=== PATIENT | male | born 1980 | race Caucasian/White ===

== ENCOUNTER 2018-07-13 14:54 | Emergency (ER) | payer OTHER ==
--- NOTE | 2018-07-13 16:22 | ER Document Report ---
ED Medical Screen (RME) - General Chief Complaint: Chest Pain Stated Complaint: ABDOMINAL PAIN/ESOPHAGEAL PAIN Time Seen by Provider: 07/13/18 16:12 Notes: 37-year-old male patient comes emergency room complaining of a burning right- sided chest pain for the past 3 weeks that he noticed was worse this morning. He took Leisa-[place] without any relief. He also noted today his left arm feels heavy like he slept on it wrong. States nothing seemed to make the pain better or worse including activity, exercise, or eating or drinking. I have greeted and performed a rapid initial assessment of this patient. A comprehensive ED assessment and evaluation of the patient, analysis of test results and completion of the medical decision making process will be conducted by additional ED providers. TRAVEL OUTSIDE OF THE [place] IN LAST 30 DAYS: No - Related Data Allergies/Adverse Reactions: IVP DYE Allergy (Uncoded 07/13/18 16:14) Past Medical History - Social History Chew tobacco use (# tins/day): No Frequency of alcohol use: Social Drug Abuse: None Renal/ Medical History: Denies: Hx Peritoneal Dialysis Past Surgical History: Reports: Hx Oral Surgery - wisdom teeth Physical Exam - Vital signs Vitals: Temp Pulse Resp BP Pulse Ox 98.0 F 82 16 148/95 H 97 07/13/18 15:10 07/13/18 15:10 07/13/18 15:10 07/13/18 15:10 07/13/18 15:10 Course - Vital Signs Vital signs: Temp Pulse Resp BP Pulse Ox 98.0 F 82 16 148/95 H 97 07/13/18 15:10 07/13/18 15:10 07/13/18 15:10 07/13/18 15:10 07/13/18 15:10
[2018-07-13 16:48] LABS: ABSOLUTE BASOPHILS # (AUTO) 0.1 10^3/uL (0.0-0.2); ABSOLUTE EOSINOPHILS # (AUTO) 0.6 10^3/uL (0.0-0.6); ABSOLUTE LYMPHOCYTES (AUTO) 2.8 10^3/uL (0.5-4.7); ABSOLUTE MONOCYTES (AUTO) 0.7 10^3/uL (0.1-1.4); ABSOLUTE NEUT (AUTO) 4.2 10^3/uL (1.7-8.2); BASOPHILS % (AUTO) 0.9 % (0-2); EOSINOPHILS % (AUTO) 7.5 % (0-6); HEMATOCRIT 45.3 % (37.9-51.0); HEMOGLOBIN 15.7 g/dL (13.5-17.0); LYMPHOCYTES % (AUTO) 33.7 % (13-45); MEAN CORPUSCULAR HEMOGLOBIN 30.3 pg (27.0-33.4); MEAN CORPUSCULAR HGB CONC 34.6 g/dL (32.0-36.0); MEAN CORPUSCULAR VOLUME 88 fl (80-97); MONOCYTES % (AUTO) 8.2 % (3-13); PLATELET COUNT 258 10^3/uL (150-450); RED BLOOD COUNT 5.17 10^6/uL (4.35-5.55); RED CELL DISTRIBUTION WIDTH 13.3 % (11.5-14.0); SEGMENTED NEUTROPHILS % (AUTO) 49.7 % (42-78); TOTAL CELLS COUNTED % (AUTO) 100 %; WHITE BLOOD COUNT 8.4 10^3/uL (4.0-10.5)
[2018-07-13 17:02] LABS: ALANINE AMINOTRANSFERASE 38 U/L (21-72); ALBUMIN 4.5 g/dL (3.5-5.0); ALKALINE PHOSPHATASE 93 U/L (38-126); ANION GAP 9 (5-19); ASPARTATE AMINO TRANSFERASE 29 U/L (17-59); BILIRUBIN,DIRECT 0.1 mg/dL (0.0-0.4); BILIRUBIN,TOTAL 0.4 mg/dL (0.2-1.3); BLOOD UREA NITROGEN 12 mg/dL (7-20); CALCIUM 9.6 mg/dL (8.4-10.2); CARBON DIOXIDE 31 mmol/L (22-30); CHLORIDE 103 mmol/L (98-107); CREATINE KINASE 99 U/L (55-170); GLUCOSE 89 mg/dL (75-110); POTASSIUM 4.4 mmol/L (3.6-5.0); SODIUM 143.1 mmol/L (137-145); TOTAL PROTEIN 7.5 g/dL (6.3-8.2)
[2018-07-13 17:15] LABS: CREATINE KINASE MB 0.59 ng/mL (<4.55)
[2018-07-13 17:16] LABS: TROPONIN I < 0.012 ng/mL
--- NOTE | 2018-07-13 17:26 | RADIOLOGY REPORT (SQ) ---
EXAM DESCRIPTION: CHEST 2 VIEWS COMPLETED DATE/TIME: 07/13/2018 5:05 pm REASON FOR STUDY: Chest pain COMPARISON: None. EXAM PARAMETERS: NUMBER OF VIEWS: two views TECHNIQUE: Digital Frontal and Lateral radiographic views of the chest acquired. RADIATION DOSE: NA LIMITATIONS: none FINDINGS: LUNGS AND PLEURA: No opacities, masses or pneumothorax. No pleural effusion. MEDIASTINUM AND HILAR STRUCTURES: No masses or contour abnormalities. HEART AND VASCULAR STRUCTURES: Heart normal size. No evidence for failure. BONES: No acute findings. HARDWARE: None in the chest. OTHER: No other significant finding. IMPRESSION: NO ACUTE RADIOGRAPHIC FINDING IN THE CHEST. TECHNICAL DOCUMENTATION: JOB ID: [id number] @Pay- All Rights Reserved Reading location - IP/workstation name: [email or web address]
--- NOTE | 2018-07-13 18:16 | ER Document Report ---
ED General - General Chief Complaint: Chest Pain Stated Complaint: ABDOMINAL PAIN/ESOPHAGEAL PAIN Time Seen by Provider: 07/13/18 16:12 Mode of Arrival: Ambulatory Information source: Patient Notes: Patient is an otherwise healthy 37-year-old [employer] duty [employer] who presents to the emergency department complaining of a burning and aching pain in the right side of his chest that has been ongoing for the past 3 weeks. Patient reports the aching and burning is intermittent, he states it occurs every day sometimes it lasts all day and sometimes only a few hours. Patient reports he has taken Zantac and Leisa-[place] with no relief. Patient also reports intermittent heaviness in his left arm. He denies any shortness of breath or nausea. He states there is no association with the foods that he eats. He denies any past medical history of hypertension, hyperlipidemia, and he is a non-smoker. Today's episode started this morning when he first woke up. TRAVEL OUTSIDE OF THE [place] IN LAST 30 DAYS: No - Related Data Allergies/Adverse Reactions: IVP DYE Allergy (Uncoded 07/13/18 16:14) Past Medical History - General Information source: Patient - Social History Smoking Status: Never Smoker Chew tobacco use (# tins/day): No Frequency of alcohol use: Social Drug Abuse: None Family History: Reviewed & Not Pertinent Patient has suicidal ideation: No Patient has homicidal ideation: No Renal/ Medical History: Denies: Hx Peritoneal Dialysis Psychiatric Medical History: Reports: Hx Anxiety Past Surgical History: Reports: Hx Oral Surgery - wisdom teeth - Immunizations Immunizations up to date: Yes Review of Systems - Review of Systems Constitutional: No symptoms reported EENT: No symptoms reported Cardiovascular: Chest pain - Burning/pressure, no pain Respiratory: No symptoms reported Gastrointestinal: No symptoms reported Genitourinary: No symptoms reported Male Genitourinary: No symptoms reported Musculoskeletal: No symptoms reported Skin: No symptoms reported Hematologic/Lymphatic: No symptoms reported Neurological/Psychological: No symptoms reported Physical Exam - Vital signs Vitals: Temp Pulse Resp BP Pulse Ox 98.0 F 82 16 148/95 H 97 07/13/18 15:10 07/13/18 15:10 07/13/18 15:10 07/13/18 15:10 07/13/18 15:10 - Notes Notes: PHYSICAL EXAMINATION: GENERAL: Well-appearing, well-nourished and in no acute distress. HEAD: Atraumatic, normocephalic. EYES: Pupils equal round and reactive to light, extraocular movements intact, sclera anicteric, conjunctiva are normal. ENT: Nares patent, oropharynx clear without exudates. Moist mucous membranes. NECK: Normal range of motion, supple without lymphadenopathy LUNGS: Breath sounds clear to auscultation bilaterally and equal. No wheezes rales or rhonchi. HEART: Regular rate and rhythm without murmurs ABDOMEN: Soft, nontender, nondistended abdomen. No guarding, no rebound. No masses appreciated. Musculoskeletal: Normal range of motion, no pitting or edema. No cyanosis. NEUROLOGICAL: Cranial nerves grossly intact. Normal speech, normal gait. Normal sensory, motor exams PSYCH: Normal mood, normal affect. SKIN: Warm, Dry, normal turgor, no rashes or lesions noted. Course - Re-evaluation Re-evalutation: Patient was initially seen by provider in triage, workup completed by the time I saw the patient. Patient resting comfortably with no acute distress noted physical examination is unremarkable. EKG shows a sinus rhythm, rate of 71, QTC of 418, normal axis, no ST segment elevations or depressions. Chest x-ray is unremarkable with no evidence of cardiomegaly, pneumothorax or pneumonia. CBC, CMP and cardiac enzymes are negative. Patient reports his symptoms have been ongoing for several weeks with worsening this morning. Symptoms this morning started greater than 6 hours ago so I do not feel that repeat troponin testing is necessary. Patient has a heart score of 0. I did offer patient a GI cocktail which he declined stating that he has no symptoms at this time. He agreed [place]. We did discuss ED return precautions to include worsening chest pain accompanied by nausea, vomiting, shortness of breath, diaphoresis or radiation of the pain. - Vital Signs Vital signs: Temp Pulse Resp BP Pulse Ox 98.1 F 73 18 136/91 H 99 07/13/18 18:34 07/13/18 18:34 07/13/18 18:34 07/13/18 18:34 07/13/18 18:34 - Laboratory Result Diagrams: 07/13/18 16:31 07/13/18 16:31 Laboratory results interpreted by me: 07/13/18 07/13/18 16:31 16:31 Eosinophils % 7.5 H Carbon Dioxide 31 H Discharge - Discharge Clinical Impression: Burning chest pain Condition: Stable Disposition: HOME, SELF-CARE Additional Instructions: Chest Pain of Unclear Cause The exact cause of your chest pain isn't clear. Fortunately, there is no evidence of a dangerous medical condition. Further testing may be required to find the source of the pain. Most often, we find that this pain is coming from the chest wall -- the muscles or rib joints in the chest. But chest pain can come from the lung and lung lining, the esophagus, the heart valves or heart lining, and even the stomach or gallbladder. Rest. Eat lightly until the pain is gone. We may prescribe medicine for pain and inflammation. You should call the physician immediately if the pain radiates to the shoulder, jaw or arms; if you start to run a fever or develop a cough; or if you develop shortness of breath, or other new or alarming symptoms. I have included a copy of your lab work, your EKG and your chest x-ray for your primary care provider. In the meanwhile if you develop another episode of burning in her chest I would recommend trying to take some omeprazole. You can purchase this [id number]. Return to the emergency department if you develop any of the above warning signs such as pain that radiates to your shoulder, jaw or arms, chest pain that is accompanied by shortness of breath, nausea or diaphoresis. We are happy to reevaluate you at any time.
[2018-07-13 18:35] VITALS: BP 136/91
--- NOTE | 2018-07-13 22:57 | EKG REPORT ---
SEVERITY:- BORDERLINE ECG - SINUS RHYTHM BORDERLINE INFERIOR Q WAVES : Confirmed by: Wilmer Izquierdo 13-Jul-2018 22:57:11
== END 2018-07-13 18:36 | disposition home or self-care (01) ==
LOC: ER 14:54
DX: R07.89 Other chest pain (principal); Z91.041 Radiographic dye allergy status
CPT/HCPCS: 36415; 71046; 80053; 82550; 82553; 84484; 85025; 93005; 93010; 99284

== ENCOUNTER 2019-01-07 06:00 | Emergency (ER) | payer OTHER ==
[2019-01-07] MEDS ORDERED: METOCLOPRAMIDE HCL ORAL SOLN 10 MG/10 ML UDCUP PO ONE (06:35)
[2019-01-07] MEDS ORDERED: MAG HYDROX/AL HYDROX/SIMETH SUSP 30 ML UDCUP PO ONE (06:35)
[2019-01-07] MEDS ORDERED: LIDOCAINE 2% VISCOUS SOLN 20 ML UDCUP PO ONE (06:35)
--- NOTE | 2019-01-07 06:42 | ER Document Report ---
ED General - General Chief Complaint: Chest Pain Stated Complaint: CHEST PAIN Time Seen by Provider: 01/07/19 06:35 Notes: Patient is a 38-year-old male history of reflux and anxiety presents to the emergency department for generalized epigastric abdominal pain. Patient states he woke up this morning with generalized epigastric and left upper quadrant abdominal pain. States he did take 2 Tums which did not help. Patient's denying any nausea, vomiting, diarrhea. He is denying any fevers or dysuria. Patient states he did have one bowel movement which was nonbloody and not tarry in nature. Patient states he used to take Pepcid regularly for his indigestion but has not taken it" a while." Patient states he was having generalized muscle spasms in the left side of his chest. States he was seen at [facility] for same and had a cardiac stress test approximately 3 months ago. States he was told by the endless belt finisher that his stress test was "normal." Patient's denying any muscle spasms at this time only generalized epigastric/LUQ abdominal pain. Patient voices he did drink beers yesterday as this is his "typical Monday beverage." Patient voices he used to be an "alcoholic" but is denying heavy alcohol intoxication in the last year. TRAVEL OUTSIDE OF THE [place] IN LAST 30 DAYS: No - Related Data Allergies/Adverse Reactions: IVP DYE Allergy (Uncoded 07/13/18 16:14) Past Medical History - General Information source: Patient - Social History Smoking Status: Unknown if Ever Smoked Frequency of alcohol use: Social Family History: Reviewed & Not Pertinent Renal/ Medical History: Denies: Hx Peritoneal Dialysis Psychiatric Medical History: Reports: Hx Anxiety Past Surgical History: Reports: Hx Oral Surgery - wisdom teeth - Immunizations Immunizations up to date: Yes Review of Systems - Review of Systems Constitutional: denies: Fever EENT: No symptoms reported Cardiovascular: denies: Chest pain, Palpitations, Heart racing Respiratory: No symptoms reported Gastrointestinal: See HPI Genitourinary: No symptoms reported Male Genitourinary: No symptoms reported Musculoskeletal: No symptoms reported Skin: No symptoms reported Hematologic/Lymphatic: No symptoms reported Neurological/Psychological: No symptoms reported Physical Exam - Vital signs Vitals: Temp Pulse Resp BP Pulse Ox 97.6 F 73 18 136/103 H 99 01/07/19 06:14 01/07/19 06:14 01/07/19 06:14 01/07/19 06:14 01/07/19 06:14 - Notes Notes: GENERAL: Alert, interacts well. No acute distress. HEAD: Normocephalic, atraumatic. EYES: Pupils equal, round, and reactive to light. Extraocular movements intact. ENT: Oral mucosa moist, tongue midline. NECK: Full range of motion. Supple. Trachea midline. LUNGS: Clear to auscultation bilaterally, no wheezes, rales, or rhonchi. No re spiratory distress. HEART: Regular rate and rhythm. No murmur ABDOMEN: Soft, no McBurney's point tenderness, no Canales sign noted. Generalized epigastric abdominal pain noted, minor left upper quadrant abdominal pain noted. Non-distended. Bowel sounds present in all 4 quadrants. EXTREMITIES: Moves all 4 extremities spontaneously. No edema, normal radial and dorsalis pedis pulses bilaterally. No cyanosis. BACK: no cervical, thoracic, lumbar midline tenderness. No saddle anesthesia, normal distal neurovascular exam. No CVA tenderness noted bilaterally. NEUROLOGICAL: Alert and oriented x3. Normal speech. cranial nerves II through XII grossly intact PSYCH: Normal affect, normal mood. SKIN: Warm, dry, normal turgor. No rashes or lesions noted. Course - Re-evaluation Re-evalutation: 01/07/19 07:43 Laboratory 01/07/19 01/07/19 06:47 06:47 WBC 7.3 RBC 5.22 Hgb 15.7 Hct 45.1 MCV 86 MCH 30.0 MCHC 34.7 RDW 13.4 Plt Count 246 Lymph % (Auto) 37.6 [place] % (Auto) 9.5 Eos % (Auto) 6.7 H Baso % (Auto) 0.7 Absolute Neuts (auto) 3.3 Absolute Lymphs (auto) 2.8 Absolute Monos (auto) 0.7 Absolute Eos (auto) 0.5 Absolute Basos (auto) 0.1 Seg Neutrophils % 45.5 Sodium 138.6 Potassium 4.0 Chloride 103 Carbon Dioxide 26 Anion Gap 10 BUN 12 Creatinine 0.89 Est GFR ( Amer) > 60 Est GFR (MDRD) Non-Af > 60 Glucose 107 Calcium 9.7 Total Bilirubin 0.5 Direct Bilirubin 0.1 Neonat Total Bilirubin Not Reportable Neonat Direct Bilirubin Not Reportable Neonat Indirect Bili Not Reportable AST 31 ALT 29 Alkaline Phosphatase 95 Total Protein 7.6 Albumin 4.5 Lipase 63.9 Patient presents after a GI cocktail he feels a lot better. Patient states he was also able to have another bowel movement. Patient continues to deny black or tarry stools, continues to deny bright red blood per rectum. States he no longer has any abdominal pain. Discussed continued use of Pepcid, following up with primary care provider and inevitably gastroenterology. At this time will discharge with return precautions and follow-up recommendations. Verbal discharge instructions given a the bedside and opportunity for questions given. Medication warnings reviewed. Patient is in agreement with this plan and has verbalized understanding of return precautions and the need for primary care follow-up in the next 24-72 hours. This medical record was dictated with voice recognizing software. There may be grammatical, syntax errors that are unintended. - Vital Signs Vital signs: Temp Pulse Resp BP Pulse Ox 97.6 F 73 18 136/103 H 99 01/07/19 06:14 01/07/19 06:14 01/07/19 06:14 01/07/19 06:14 01/07/19 06:14 - Laboratory Result Diagrams: 01/07/19 06:47 01/07/19 06:47 Laboratory results interpreted by me: 01/07/19 06:47 Eos % (Auto) 6.7 H Discharge - Discharge Clinical Impression: Gastritis Qualifiers: Gastritis type: unspecified gastritis Chronicity: acute Gastritis bleeding: without bleeding Qualified Code(s): K29.00 - Acute gastritis without bleeding Condition: Stable Disposition: HOME, SELF-CARE Instructions: Reflux Disease (GERD) (OM), Gastritis (OM) Additional Instructions: As we discussed you have been seen and treated in the emergency department for your epigastric abdominal pain. This is likely due to gastritis. This is an inflammation of the lining of your esophagus. Please make sure you are taking Pepcid as prescribed. Please also make sure he follow-up with your primary care provider. You may also want to follow-up with a plant facilities technician, phone numbers will be provided in this packet. Please return to the emergency room for any further concerns. Prescriptions: Sucralfate [Carafate 1 gm Tablet] 1 gm PO QID #20 tablet Famotidine [Pepcid 40 mg Tablet] 40 mg PO BID #60 tablet Forms: Return to Work Referrals: JUAN KENDRICK MD [ACTIVE STAFF] - Follow up as needed
[2019-01-07 07:00] LABS: ABSOLUTE BASOPHILS # (AUTO) 0.1 10^3/uL (0.0-0.2); ABSOLUTE EOSINOPHILS # (AUTO) 0.5 10^3/uL (0.0-0.6); ABSOLUTE LYMPHOCYTES (AUTO) 2.8 10^3/uL (0.5-4.7); ABSOLUTE MONOCYTES (AUTO) 0.7 10^3/uL (0.1-1.4); ABSOLUTE NEUT (AUTO) 3.3 10^3/uL (1.7-8.2); BASOPHILS % (AUTO) 0.7 % (0-2); EOSINOPHILS % (AUTO) 6.7 % (0-6); HEMATOCRIT 45.1 % (37.9-51.0); HEMOGLOBIN 15.7 g/dL (13.5-17.0); LYMPHOCYTES % (AUTO) 37.6 % (13-45); MEAN CORPUSCULAR HGB CONC 34.7 g/dL (32.0-36.0); MEAN CORPUSCULAR VOLUME 86 fl (80-97); MONOCYTES % (AUTO) 9.5 % (3-13); PLATELET COUNT 246 10^3/uL (150-450); RED BLOOD COUNT 5.22 10^6/uL (4.35-5.55); RED CELL DISTRIBUTION WIDTH 13.4 % (11.5-14.0); SEGMENTED NEUTROPHILS % (AUTO) 45.5 % (42-78); TOTAL CELLS COUNTED % (AUTO) 100 %; WHITE BLOOD COUNT 7.3 10^3/uL (4.0-10.5)
--- NOTE | 2019-01-07 07:23 | EKG REPORT ---
SEVERITY:- ABNORMAL ECG - SINUS RHYTHM PROBABLE INFERIOR INFARCT, OLD ST ELEVATION NONSPECIFIC, UNCHANGED FROM 07/13/18 : Confirmed by: Leobardo Salgado MD 07-Jan-2019 07:22:40
[2019-01-07 07:35] LABS: ALBUMIN 4.5 g/dL (3.5-5.0); ALKALINE PHOSPHATASE 95 U/L (38-126); ANION GAP 10 (5-19); ASPARTATE AMINO TRANSFERASE 31 U/L (17-59); BILIRUBIN,DIRECT 0.1 mg/dL (0.0-0.4); BILIRUBIN,TOTAL 0.5 mg/dL (0.2-1.3); BLOOD UREA NITROGEN 12 mg/dL (7-20); CALCIUM 9.7 mg/dL (8.4-10.2); CARBON DIOXIDE 26 mmol/L (22-30); CHLORIDE 103 mmol/L (98-107); GLUCOSE 107 mg/dL (75-110); TOTAL PROTEIN 7.6 g/dL (6.3-8.2)
[2019-01-07 08:04] VITALS: BP 130/94
== END 2019-01-07 08:04 | disposition home or self-care (01) ==
LOC: ER 06:00
DX: K29.00 Acute gastritis without bleeding (principal); R07.9 Chest pain, unspecified; R10.13 Epigastric pain; Z91.041 Radiographic dye allergy status
CPT/HCPCS: 93005; 36415; 83690; 85025; 80053; 93010; J3490; 99284

== ENCOUNTER 2019-05-07 21:19 | Emergency (ER) | payer OTHER ==
--- NOTE | 2019-05-07 22:27 | ER Document Report ---
ED Medical Screen (RME) - General Chief Complaint: Back Pain Stated Complaint: LOWER BACK PAIN/RIGHT LOWER BACK Time Seen by Provider: 05/07/19 22:25 Notes: Patient is a 38-year-old male who presents to the emergency department with a chief complaint of right lower back pain. Patient reports he has had right lower back pain for about 2 weeks. Patient reports he got worse over the past 2 days. Patient denies injury or fall. Patient denies history of kidney stones. Patient reports over the past few days is gotten more constant and severe. Patient reports earlier he did have some nausea. Patient states he did take an 800 mg ibuprofen earlier today with minimal relief. Patient reports he does feel like he urinates frequently on a daily basis but feels like it is more frequent than normal. Patient denies burning with urination. Patient denies blood in the urine. Patient denies vomiting or diarrhea. Patient reports he is a heavy drinker with his last intake 3 days ago. Patient reports he mostly binge drinks [place] TRAVEL OUTSIDE OF THE [place] IN LAST 30 DAYS: No - Related Data Allergies/Adverse Reactions: IVP DYE Allergy (Uncoded 05/07/19 22:20) Past Medical History - Social History Frequency of alcohol use: Heavy Drug Abuse: None Renal/ Medical History: Denies: Hx Peritoneal Dialysis GI Medical History: Reports: Hx Gastroesophageal Reflux Disease Psychiatric Medical History: Reports: Hx Anxiety Past Surgical History: Reports: Hx Oral Surgery - wisdom teeth - Immunizations Immunizations up to date: Yes Physical Exam - Vital signs Vitals: Temp Pulse Resp BP Pulse Ox 97.7 F 65 20 142/95 H 99 05/07/19 21:25 05/07/19 21:25 05/07/19 21:25 05/07/19 21:25 05/07/19 21:25 Course - Re-evaluation Re-evalutation: 05/07/19 22:26 Patient has right lower back pain tender to palpation. Patient does not have CVA tenderness. Will obtain basic labs as well as a urinalysis to start. I have greeted and performed a rapid initial assessment of this patient. A comprehensive ED assessment and evaluation of the patient, analysis of test results and completion of the medical decision making process will be conducted by additional ED providers. - Vital Signs Vital signs: Temp Pulse Resp BP Pulse Ox 97.7 F 65 20 142/95 H 99 05/07/19 21:25 05/07/19 21:25 05/07/19 21:25 05/07/19 21:25 05/07/19 21:25
[2019-05-07 22:49] LABS: ABSOLUTE BASOPHILS # (AUTO) 0.1 10^3/uL (0.0-0.2); ABSOLUTE EOSINOPHILS # (AUTO) 0.5 10^3/uL (0.0-0.6); ABSOLUTE LYMPHOCYTES (AUTO) 4.5 10^3/uL (0.5-4.7); ABSOLUTE MONOCYTES (AUTO) 0.9 10^3/uL (0.1-1.4); ABSOLUTE NEUT (AUTO) 4.4 10^3/uL (1.7-8.2); HEMATOCRIT 45.6 % (37.9-51.0); HEMOGLOBIN 16.3 g/dL (13.5-17.0); MEAN CORPUSCULAR HEMOGLOBIN 31.4 pg (27.0-33.4); MEAN CORPUSCULAR HGB CONC 35.7 g/dL (32.0-36.0); MEAN CORPUSCULAR VOLUME 88 fl (80-97); MONOCYTES % (AUTO) 8.3 % (3-13); PLATELET COUNT 251 10^3/uL (150-450); RED BLOOD COUNT 5.19 10^6/uL (4.35-5.55); RED CELL DISTRIBUTION WIDTH 13.2 % (11.5-14.0); SEGMENTED NEUTROPHILS % (AUTO) 42.7 % (42-78); TOTAL CELLS COUNTED % (AUTO) 100 %; WHITE BLOOD COUNT 10.4 10^3/uL (4.0-10.5)
[2019-05-07 23:03] LABS: ALBUMIN 4.5 g/dL (3.5-5.0); ALKALINE PHOSPHATASE 99 U/L (38-126); ANION GAP 11 (5-19); ASPARTATE AMINO TRANSFERASE 41 U/L (17-59); BILIRUBIN,DIRECT 0.2 mg/dL (0.0-0.4); BILIRUBIN,TOTAL 0.7 mg/dL (0.2-1.3); BLOOD UREA NITROGEN 18 mg/dL (7-20); CALCIUM 9.4 mg/dL (8.4-10.2); CARBON DIOXIDE 28 mmol/L (22-30); CHLORIDE 99 mmol/L (98-107); GLUCOSE 97 mg/dL (75-110); POTASSIUM 4.1 mmol/L (3.6-5.0); TOTAL PROTEIN 8.1 g/dL (6.3-8.2)
[2019-05-07 23:07] LABS: APPEARANCE,URINE CLEAR; BILIRUBIN,URINE NEGATIVE (NEGATIVE); COLOR,URINE STRAW; GLUCOSE, URINE NEGATIVE (NEGATIVE); KETONES,URINE NEGATIVE (NEGATIVE); LEUKOCYTE ESTERASE,URINE NEGATIVE (NEGATIVE); NITRITE,URINE NEGATIVE (NEGATIVE); PROTEIN,URINE NEGATIVE (NEGATIVE); URINE SPECIFIC GRAVITY 1.005; UROBILINOGEN,URINE NEGATIVE mg/dL (<2.0)
--- NOTE | 2019-05-08 01:42 | RADIOLOGY REPORT (SQ) ---
EXAM DESCRIPTION: RadLex: US RETROPERITONEUM CLINICAL HISTORY: 38 years Male; right flank pain TECHNIQUE: Bilateral renal ultrasound was performed. COMPARISON: None. FINDINGS: Right kidney: 10.6 x 5.9 x 5.3 cm. 4 mm upper pole echogenic focus, likely a small calculus. No hydronephrosis. Left kidney: 11.3 x 5.9 x 5.3 cm. No hydronephrosis or shadowing calculi. Bladder: within normal limits. IMPRESSION: 1. 4 mm right renal calculus. No hydronephrosis. 2. Normal left kidney
[2019-05-08] MEDS ORDERED: KETOROLAC TROMETHAMINE INJ/PF 30 MG/1 ML SDV IM ONE (02:04)
[2019-05-08] MEDS ORDERED: TAMSULOSIN HCL 0.4 MG CAP.SR.24H PO ONE (02:04)
--- NOTE | 2019-05-08 02:09 | ER Document Report ---
ED GI/ - General Chief Complaint: Back Pain Stated Complaint: LOWER BACK PAIN/RIGHT LOWER BACK Time Seen by Provider: 05/07/19 22:25 Primary Care Provider: ALMA BROWN PA [Primary Care Provider] - Follow up as needed Mode of Arrival: Ambulatory Information source: Patient Notes: 8-year-old male presented to ED for complaint of right low back pain. He states he has had right low back pain for about 2 weeks. He is active duty . Patient states it got much worse over the last 2 days. He denies any injuries or falls. He denies any history of kidney stones. He states the pain has gotten progressively worse and more severe. He states that he did take some ibuprofen earlier with very minimal relief. He states he is urinating more frequently and is concerned so he came to the emergency room. Patient is alert oriented respirations regular unlabored speaking in full sentences. He states he is a heavy drinker but has not had any alcohol in the last 3 days. TRAVEL OUTSIDE OF THE [place] IN LAST 30 DAYS: No - HPI Patient complains to provider of: Flank pain Onset: Other - 2 weeks worse for the last 2 days Timing/Duration: Gradual, Persistent Quality of pain: Achy, Dull Severity at maximum: Moderate Severity in ED: Moderate Pain Level: 4 Location: Right flank Associated symptoms: Hematuria, Urinary frequency, Other - Leg pain Exacerbated by: Movement Relieved by: Denies Similar symptoms previously: Yes Recently seen / treated by doctor: No - Related Data Allergies/Adverse Reactions: IVP DYE Allergy (Uncoded 05/07/19 22:20) Past Medical History - General Information source: Patient - Social History Smoking Status: Former Smoker Frequency of alcohol use: Heavy Drug Abuse: None Occupation: Active duty Family History: Reviewed & Not Pertinent Patient has suicidal ideation: No Patient has homicidal ideation: No - Past Medical History Cardiac Medical History: Reports: None Pulmonary Medical History: Reports: None EENT Medical History: Reports: None Neurological Medical History: Reports: None Renal/ Medical History: Reports: None Malignancy Medical History: Reports None GI Medical History: Reports: Hx Gastroesophageal Reflux Disease Musculoskeletal Medical History: Reports None Skin Medical History: Reports None Psychiatric Medical History: Reports: Hx Anxiety Traumatic Medical History: Reports: None Infectious Medical History: Reports: None Past Surgical History: Reports: Hx Oral Surgery - wisdom teeth - Immunizations Immunizations up to date: Yes Hx Diphtheria, Pertussis, Tetanus Vaccination: Yes Review of Systems - Review of Systems Constitutional: No symptoms reported EENT: No symptoms reported Cardiovascular: No symptoms reported Respiratory: No symptoms reported Gastrointestinal: No symptoms reported Genitourinary: Frequency, Flank pain Male Genitourinary: No symptoms reported Musculoskeletal: No symptoms reported Skin: No symptoms reported Hematologic/Lymphatic: No symptoms reported Neurological/Psychological: No symptoms reported -: Yes All other systems reviewed and negative Physical Exam - Vital signs Vitals: Temp Pulse Resp BP Pulse Ox 97.7 F 65 20 142/95 H 99 05/07/19 21:25 05/07/19 21:25 05/07/19 21:25 05/07/19 21:25 05/07/19 21:25 Interpretation: Normal - General General appearance: Appears well, Alert - HEENT Head: Normocephalic, Atraumatic Eyes: Normal Pupils: PERRL - Respiratory Respiratory status: No respiratory distress Chest status: Nontender Breath sounds: Normal Chest palpation: Normal - Cardiovascular Rhythm: Regular Heart sounds: Normal auscultation Murmur: No - Abdominal Inspection: Normal Distension: No distension Bowel sounds: Normal Tenderness: Nontender Organomegaly: No organomegaly - Back Back: Normal, Tender, CVA tenderness - Right flank - Extremities General upper extremity: Normal inspection, Nontender, Normal color, Normal ROM, Normal temperature General lower extremity: Normal inspection, Nontender, Normal color, Normal ROM, Normal temperature, Normal weight bearing. No: Liza's sign - Neurological Neuro grossly intact: Yes Cognition: Normal Orientation: AAOx4 [place] Coma Scale Eye Opening: Spontaneous [place] Coma Scale Verbal: Oriented [place] Coma Scale Motor: Obeys Commands [place] Coma Scale Total: 15 Speech: Normal Motor strength normal: LUE, RUE, LLE, RLE Sensory: Normal - Psychological Associated symptoms: Normal affect, Normal mood - Skin Skin Temperature: Warm Skin Moisture: Dry Skin Color: Normal Course - Re-evaluation Re-evalutation: 05/08/19 08:23 Patient was treated with Flomax and Toradol. Patient was discharged home with instructions to follow-up with his provider as he is active duty . Patient verbalized understanding and agreement with treatment plan and patient was discharged home. Patient was given a written report of his labs and radiological testing. - Vital Signs Vital signs: Temp Pulse Resp BP Pulse Ox 97.6 F 66 16 140/96 H 98 05/08/19 02:23 05/08/19 02:23 05/08/19 02:23 05/08/19 02:23 05/08/19 02:23 - Laboratory Result Diagrams: 05/07/19 22:30 05/07/19 22:30 - Diagnostic Test Radiology reviewed: Image reviewed, Reports reviewed Discharge - Discharge Clinical Impression: Right kidney stone Condition: Stable Disposition: HOME, SELF-CARE Additional Instructions: KIDNEY STONE: You are passing or have passed a kidney stone. These stones are usually due to increased calcium or uric acid concentrations in your urine. Stones w ithin the kidney itself are not painful. The pain occurs as the stone leaves the kidney to pass down the long tube, called the ureter, leading to the bladder. If the stone is small, it will usually pass by itself. Most patients can pass the stone at home. You will usually receive medications for pain, nausea or vomiting, and sometimes a medication to assist in passing the kidney stone. However, if the pain is very severe or if vomiting prevents you from taking oral pain medications, you may need to return for further treatment. Drink three or four quarts of fluids per day. You will be given pain medication (if needed) and urine strainers. Strain all your urine to see if the stone passes. If your doctor has asked you to bring the stone in for analysis, return with the stone once it has passed. Return if pain or vomiting become severe, if you develop a high fever, if you are unable to pass your urine, or if other unusual symptoms occur. TORADOL INJECTION: You have been given an injection of ketorolac tromethamine (Toradol). This is an excellent, safe drug for pain control. It also has potent antiinflammatory action. You should have significant pain relief within about one hour. Toradol is not addicting and is non-sedating. It does not interfere with driving or work. Call or return if you develop itching, hives, shortness of breath, or rash. FLOMAX (tamsulosin): Flomax is a medicine that shrinks the prostate gland. It helps relieve symptoms of benign prostatic hypertrophy, such as frequent urination, weak stream, and inadequate emptying. It has been shown to dilate the ureter (tube leading from the kidney to the bladder) and help in passing kidney stones Flomax usually causes no side effects. You may notice slight tiredness and dizziness for a few days. Some patients develop nasal congestion. Rarely, impotence can occur. If the symptoms are bothersome and don't improve with continued use, call your doctor. Contact your doctor or return if you have fainting spells, severe weakness or dizziness, shortness of breath, or rash. FOLLOW-UP CARE: If you have been referred to a physician for follow-up care, call the physicians office for an appointment as you were instructed or within the next two days. If you experience worsening or a significant change in your symptoms, notify the physician immediately or return to the Emergency Department at any time for re-evaluation. Prescriptions: Tamsulosin HCl [Flomax] 0.4 mg PO DAILY #7 cap.er.[id number] Forms: Elevated Blood Pressure, Return to Work Referrals: ALMA BROWN PA [Primary Care Provider] - Follow up as needed
[2019-05-08 02:24] VITALS: BP 140/96
== END 2019-05-08 02:24 | disposition home or self-care (01) ==
LOC: ER 21:19
DX: N20.0 Calculus of kidney (principal); M54.5 Low back pain; R35.0 Frequency of micturition; R31.9 Hematuria, unspecified; M79.606 Pain in leg, unspecified; R10.9 Unspecified abdominal pain; Z91.041 Radiographic dye allergy status; Z87.891 Personal history of nicotine dependence
CPT/HCPCS: 99284; 96372; 36415; 85025; 80053; 81001; 76770; J1885

== ENCOUNTER 2019-09-23 11:16 | Emergency (ER) | payer OTHER ==
[2019-09-23 12:02] LABS: ABSOLUTE BASOPHILS # (AUTO) 0.1 10^3/uL (0.0-0.2); ABSOLUTE EOSINOPHILS # (AUTO) 0.3 10^3/uL (0.0-0.6); ABSOLUTE MONOCYTES (AUTO) 0.5 10^3/uL (0.1-1.4); ABSOLUTE NEUT (AUTO) 4.5 10^3/uL (1.7-8.2); BASOPHILS % (AUTO) 0.7 % (0-2); EOSINOPHILS % (AUTO) 3.8 % (0-6); HEMATOCRIT 46.6 % (37.9-51.0); HEMOGLOBIN 16.7 g/dL (13.5-17.0); LYMPHOCYTES % (AUTO) 27.4 % (13-45); MEAN CORPUSCULAR HEMOGLOBIN 31.1 pg (27.0-33.4); MEAN CORPUSCULAR HGB CONC 35.8 g/dL (32.0-36.0); MEAN CORPUSCULAR VOLUME 87 fl (80-97); MONOCYTES % (AUTO) 6.6 % (3-13); PLATELET COUNT 269 10^3/uL (150-450); RED BLOOD COUNT 5.36 10^6/uL (4.35-5.55); RED CELL DISTRIBUTION WIDTH 12.9 % (11.5-14.0); SEGMENTED NEUTROPHILS % (AUTO) 61.5 % (42-78); TOTAL CELLS COUNTED % (AUTO) 100 %; WHITE BLOOD COUNT 7.3 10^3/uL (4.0-10.5)
[2019-09-23 12:20] LABS: ALBUMIN 4.8 g/dL (3.5-5.0); ALKALINE PHOSPHATASE 101 U/L (38-126); ANION GAP 10 (5-19); ASPARTATE AMINO TRANSFERASE 28 U/L (17-59); BILIRUBIN,TOTAL 0.6 mg/dL (0.2-1.3); BLOOD UREA NITROGEN 10 mg/dL (7-20); CALCIUM 9.6 mg/dL (8.4-10.2); CARBON DIOXIDE 26 mmol/L (22-30); CHLORIDE 101 mmol/L (98-107); GLUCOSE 110 mg/dL (75-110); POTASSIUM 4.3 mmol/L (3.6-5.0); TOTAL PROTEIN 8.2 g/dL (6.3-8.2)
--- NOTE | 2019-09-23 12:23 | ER Document Report ---
ED General - General Chief Complaint: Chest Pain Stated Complaint: CHEST PAIN Time Seen by Provider: 09/23/19 11:37 Primary Care Provider: ALMA BROWN PA [NO LOCAL MD] - Follow up as needed Notes: Patient presents with chest pain right-sided rating down the right arm onset when he woke up this morning about 6 hours ago, has been constant non-positional nonexertional and unlike anything he has had before. He does have anxiety. He has no history of coronary disease but does have a family history. He does not smoke. He is an active member. No leg swelling hemoptysis cough or fever TRAVEL OUTSIDE OF THE [place] IN LAST 30 DAYS: No - Related Data Allergies/Adverse Reactions: Iodine and Iodide Containing Produc Allergy (Verified 09/23/19 11:36) Past Medical History - General Information source: Patient - Social History Smoking Status: Never Smoker Family History: Reviewed & Not Pertinent Patient has homicidal ideation: No Renal/ Medical History: Denies: Hx Peritoneal Dialysis GI Medical History: Reports: Hx Gastroesophageal Reflux Disease Psychiatric Medical History: Reports: Hx Anxiety Past Surgical History: Reports: Hx Oral Surgery - wisdom teeth - Immunizations Immunizations up to date: Yes Hx Diphtheria, Pertussis, Tetanus Vaccination: Yes Review of Systems - Review of Systems Notes: REVIEW OF SYSTEMS GEN: Denies fever, chills, weight loss ENT: Denies sore throat, nasal discharge, ear pain EYES: Denies blurry vision, eye pain, discharge CV: Pain RESP: Denies cough, shortness of breath, wheezing GI: Denies abdominal pain, nausea, vomiting, diarrhea MSK: Denies joint pain/swelling, edema, SKIN: Denies rash, skin lesions LYMPH: Denies swollen glands/lymph nodes NEURO: Denies headache, focal weakness or numbness, dizziness PSYCH: Denies depression, suicidal or homicidal ideation PHYSICAL EXAMINATION General: No acute distress, well-nourished Head: Atraumatic, normocephalic ENT: Mouth normal, oropharynx moist, no exudates or tonsillar enlargement Eyes: Conjunctiva normal, pupils equal, lids normal Neck: No JVD, supple, no guarding CVS: Normal rate, regular rhythm, no murmurs Resp: No resp distress, equal and normal breath sounds bilaterally GI: Nondistended, soft, no tenderness to palpation, no rebound or guarding Ext: No deformities, no edema, normal range of motion in upper and lower ext Back: No CVA or midline TTP Skin: No rash, warm Lymphatic: No lymphadeopathy noted Neuro: Awake, alert. Face symmetric. GCS 15. After: Anxious Physical Exam - Vital signs Vitals: Temp Pulse Resp BP Pulse Ox 98.4 F 66 20 163/106 H 99 09/23/19 11:34 09/23/19 11:34 09/23/19 11:34 09/23/19 11:34 09/23/19 11:34 Course - Re-evaluation Re-evalutation: 09/23/19 12:30 Chest pain with radiation in a patient with no prior risk factors, heart score is 1 to maximum with family history Does have anxiety but refuses benzos because he cannot get a ride home EKG is normal, will check troponin and x-ray 09/23/19 18:20 Work-up negative. We offered antianxiety medicine patient refused. Discharge home. Ins I have discussed with the patient there likely diagnosis, aftercare plan, follow-up plans and my usual and customary return precautions. They verbalized understanding of this. - Vital Signs Vital signs: Temp Pulse Resp BP Pulse Ox 98.4 F 66 17 129/84 H 97 09/23/19 11:37 09/23/19 11:34 09/23/19 13:01 09/23/19 13:01 09/23/19 13:01 - Laboratory Result Diagrams: 09/23/19 11:53 09/23/19 11:53 Laboratory results interpreted by me: 09/23/19 11:53 Sodium 136.5 L - Diagnostic Test Radiology reviewed: Image reviewed, Reports reviewed - EKG Interpretation by Ne EKG shows normal: Sinus rhythm Rate: Normal Rhythm: NSR - No ST or T wave changes or signs of structural disease Discharge - Discharge Clinical Impression: Chest pain, unspecified Qualifiers: Chest pain type: unspecified Qualified Code(s): R07.9 - Chest pain, unspecified Condition: Good Disposition: HOME, SELF-CARE Instructions: Chest Pain of Unclear Cause ([facility]) Referrals: ALMA BROWN PA [NO LOCAL MD] - Follow up as needed
--- NOTE | 2019-09-23 12:25 | RADIOLOGY REPORT (SQ) ---
EXAM DESCRIPTION: CHEST 2 VIEWS IMAGES COMPLETED DATE/TIME: 09/23/2019 12:15 pm REASON FOR STUDY: chest pain/shortness of breath COMPARISON: PA and lateral views of the chest from 07/13/2018. EXAM PARAMETERS: NUMBER OF VIEWS: Two views. TECHNIQUE: PA and lateral views of the chest were obtained. RADIATION DOSE: NA LIMITATIONS: None. FINDINGS: LUNGS AND PLEURA: No consolidation, pleural effusion or pneumothorax. MEDIASTINUM AND HILAR STRUCTURES: No mediastinal or hilar contour abnormality. HEART AND VASCULAR STRUCTURES: The cardiac silhouette and pulmonary vasculature are within normal jackson its. BONES: No acute findings. HARDWARE: None in the chest. OTHER: No other finding. IMPRESSION: No acute cardiopulmonary process. TECHNICAL DOCUMENTATION: JOB ID: [id number] 2010 [employer]- All Rights Reserved Reading location - IP/workstation name: [email or web address]
[2019-09-23 13:09] VITALS: BP 129/84
--- NOTE | 2019-09-23 22:19 | EKG REPORT ---
SEVERITY:- ABNORMAL ECG - SINUS RHYTHM FIRST DEGREE AV BLOCK PROBABLE LEFT ATRIAL ABNORMALITY : Confirmed by: Wilmer Izquierdo 23-Sep-2019 22:18:53
== END 2019-09-23 13:10 | disposition home or self-care (01) ==
LOC: ER 11:16
DX: R07.9 Chest pain, unspecified (principal); F41.9 Anxiety disorder, unspecified
CPT/HCPCS: 36415; 71046; 80053; 84484; 85025; 93005; 93010; 99285